=== PATIENT | female | born 1940 | race Caucasian/White ===

== ENCOUNTER 2019-09-28 11:02 | Emergency (ER) | payer MEDICARE ==
[2019-09-28] MEDS ORDERED: Sodium Chloride 0.9% 2.5 ML Syringe FLUSH PRN (11:12)
[2019-09-28] MEDS ORDERED: Sodium Chloride 0.9% 10 ML Syringe FLUSH PRN (11:12)
--- NOTE | 2019-09-28 11:12 | EDM.PDOC ---
ED HPI GENERAL MEDICAL PROBLEM - General Chief Complaint: Cardiovascular Problem Stated Complaint: PT NOT FEELING WELL DUE TO BP Time Seen by Provider: 09/28/19 11:12 Source of Information: Reports: Patient History Limitations: Reports: No Limitations - History of Present Illness INITIAL COMMENTS - FREE TEXT/NARRATIVE: HISTORY AND PHYSICAL: History of present illness: Patient is an 79-year-old female who presents to the emergency room with complaints of generally feeling unwell, shortness of breath, weak and near syncope. She has had these symptoms for approximately 1 week. She has been checking her blood pressure routinely at home and did call her primary care provider on Saturday (Hillary Solomon NP), who directed her to decrease her blood pressure medication (Chlorthalidon). Her blood pressure at that time was 110's/70's. She becomes short of breath with physical activity or exertion. She has generalized weakness and fatigue. She does have episodes where she f eels like she could "pass out" and her vision becomes blurry. She was concerned that today her blood pressure may be high and that is why she was feeling unwell. Patient denies any fever, chills, headache, chest pain, back pain or cough. Denies any abdominal pain, nausea, vomiting, diarrhea, constipation or dysuria. Has not noted any blood in urine or stool. Patient has been eating and drinking appropriately. Patient states her only medical history of hypertension and elevated cholesterol. No recent travel or exposure to anyone who is been ill. She denies any history of immunocompromise or steroid use. Denies any alcohol or drug abuse. Review of systems: As per history of present illness and below otherwise all systems reviewed and negative. Past medical history: As per history of present illness and as reviewed below otherwise noncontributory. Surgical history: As per history of present illness and as reviewed below otherwise noncontributory. Social history: See social history for further information Family history: As per history of present illness and as reviewed below otherwise noncontributory. Physical exam: General: Well developed and well-nourished 79-year-old female. Alert and oriented. Nontoxic-appearing and in no acute distress. HEENT: Atraumatic, normocephalic, pupils equal and reactive bilaterally, negative for conjunctival pallor or scleral icterus, mucous membranes moist, TMs normal bilaterally, throat clear, neck supple, nontender, trachea midline. No drooling or trismus noted. No meningeal signs. No hot potato voice noted. Lungs: Clear to auscultation, breath sounds equal bilaterally, chest nontender. Heart: S1S2, regular rate and rhythm without overt murmur Abdomen: Soft, nondistended, nontender. Negative for masses or hepatosplenome gustavo. Negative for costovertebral tenderness. Pelvis: Stable nontender. Skin: Intact, warm, dry. No lesions or rashes noted. Extremities: Atraumatic, moves all extremities per self without difficulty or deficits, negative for cords or calf pain. Neurovascular unremarkable. Neuro: Awake, alert, oriented. Cranial nerves II through XII unremarkable. Cerebellum unremarkable. Motor and sensory unremarkable throughout. Exam nonfocal. Notes: EKG at 1118 shows normal sinus rhythm with rate of 74. No previous EKG for comparison. Head CT shows no acute findings. Lab work is unremarkable. The hospitalist happened to be down here for another patient, I briefly discussed this case with her. She is agreeable that if the patient would like to stay, although not necessary, she would accept her for observation admission. I did discuss the diagnostics with the patient. We reviewed admission versus discharge to home. Patient states she would like to be discharged to home. I think this is acceptable. We discussed signs and symptoms that would prompt her to return to the emergency room. She does have an appointment with her primary care provider next week. I encouraged her to return to the emergency room if her symptoms return, worsen or new symptoms develop. Supportive care measures were reviewed and discussed. She voices understanding and is agreeable to plan of care. Denies any further questions or concerns at this time. Diagnostics: CBC, CMP, Troponin, EKG, CXR, UA, Head CT, Orthostatic Vital Signs Therapeutics: NS at 100ml/hr Prescription: None Impression: Near Syncope Dehydration Plan: 1. Your lab work, head CT, EKG and chest x-ray are within normal limits. It did show that you were slightly dehydrated which could likely be due to your Chlorthalidon, as this is a diuretic that can cause dehydration. Consider talking to your primary care provider about stopping this medication altogether. 2. Increase your fluids at home. 3. Keep your follow-up appointment that you have set up with Erik. If your symptoms should return, worsen or new symptoms develop return to the emergency room as needed and as we discussed. Definitive disposition and diagnosis as appropriate pending reevaluation and review of above. - Related Data Allergies Allergy/AdvReac Type Severity Reaction Status Date / Time Sulfa (Sulfonamide Allergy Rash Verified 09/28/19 11:12 Antibiotics) Home Meds: Home Meds Chlorthalidone 12 mg PO DAILY 09/28/19 [History] Rosuvastatin Calcium 10 mg PO BEDTIME 09/28/19 [History] lisinopriL [Lisinopril] 10 mg PO DAILY 09/28/19 [History] ED ROS GENERAL - Review of Systems Review Of Systems: Comprehensive ROS is negative, except as noted in HPI. ED EXAM, GENERAL - Physical Exam Exam: See Below (See dictation) Course - Vital Signs Last Recorded V/S: Last Vital Signs Temp 96.0 F L 09/28/19 11:14 Pulse 72 09/28/19 11:14 Resp 16 09/28/19 11:14 BP 126/87 09/28/19 11:14 Pulse Ox 96 09/28/19 11:14 Orthostatic Blood Pressure [ 160/64 Standing] Orthostatic Blood Pressure [ 153/55 Sitting] Orthostatic Blood Pressure [ 154/54 Supine] - Orders/Labs/Meds Orders: Active Orders 24 hr Category Date Time Status EKG Documentation Completion [RC] STAT Care 09/28/19 11:12 Active Orthostatic Vital Signs [RC] ASDIRECTED Care 09/28/19 11:28 Active Saline Lock Insert [OM.PC] Stat Oth 09/28/19 11:12 Ordered Labs: Laboratory Tests 09/28/19 09/28/19 09/28/19 Range/Units 11:38 11:38 12:51 WBC 4.92 (4.0-11.0) K/uL RBC 4.13 L (4.30-5.90) M/uL Hgb 12.8 (12.0-16.0) g/dL Hct 37.3 (36.0-46.0) % MCV 90.3 (80.0-98.0) fL MCH 31.0 (27.0-32.0) pg MCHC 34.3 (31.0-37.0) g/dL RDW Std Deviation 41.4 (28.0-62.0) fl RDW Coeff of Nida 13 (11.0-15.0) % Plt Count 170 (150-400) K/uL MPV 9.80 (7.40-12.00) fL Neut % (Auto) 57.8 (48.0-80.0) % Lymph % (Auto) 33.3 (16.0-40.0) % [place] % (Auto) 6.3 (0.0-15.0) % Eos % (Auto) 2.2 (0.0-7.0) % Baso % (Auto) 0.4 (0.0-1.5) % Neut # (Auto) 2.8 (1.4-5.7) K/uL Lymph # (Auto) 1.6 (0.6-2.4) K/uL [place] # (Auto) 0.3 (0.0-0.8) K/uL Eos # (Auto) 0.1 (0.0-0.7) K/uL Baso # (Auto) 0.0 (0.0-0.1) K/uL Nucleated RBC % 0.0 /100WBC Nucleated RBCs # 0 K/uL Sodium 141 (136-145) mmol/L Potassium 3.7 (3.5-5.1) mmol/L Chloride 101 (98-107) mmol/L Carbon Dioxide 29.6 (21.0-32.0) mmol/L BUN 15 (7.0-18.0) mg/dL Creatinine 1.1 H (0.6-1.0) mg/dL Est Cr Clr Drug Dosing 36.70 mL/min Estimated GFR (MDRD) 47.8 ml/min Glucose 102 (74-106) mg/dL Calcium 8.7 (8.5-10.1) mg/dL Total Bilirubin 0.6 (0.2-1.0) mg/dL AST 12 L (15-37) IU/L ALT 14 (14-63) IU/L Alkaline Phosphatase 74 (46-116) U/L Troponin I < 0.050 (0.000-0.056) ng/mL Total Protein 6.1 L (6.4-8.2) g/dL Albumin 3.5 (3.4-5.0) g/dL Globulin 2.6 (2.6-4.0) g/dL Albumin/Globulin Ratio 1.3 (0.9-1.6) Urine Color YELLOW Urine Appearance CLEAR Urine pH 7.0 (5.0-8.0) Ur Specific [place] 1.010 (1.001-1.035) Urine Protein NEGATIVE (NEGATIVE) mg/dL Urine Glucose (UA) NEGATIVE (NEGATIVE) mg/dL Urine Ketones NEGATIVE (NEGATIVE) mg/dL Urine Occult Blood NEGATIVE (NEGATIVE) Urine Nitrite NEGATIVE (NEGATIVE) Urine Bilirubin NEGATIVE (NEGATIVE) Urine Urobilinogen 0.2 (<2.0) EU/dL Ur Leukocyte Esterase NEGATIVE (NEGATIVE) Meds: Medications Discontinued Medications Generic Name Dose Route Start Last Admin Trade Name Freq PRN Reason Stop Dose Admin Sodium Chloride 1,000 mls @ 100 mls/hr 09/28/19 11:28 09/28/19 11:42 Normal Saline IV 09/28/19 21:27 100 mls/hr STAT ONE Administration Sodium Chloride 10 ml 09/28/19 11:12 09/28/19 11:44 Saline Flush FLUSH 10 ml ASDIRECTED PRN Administration Keep Vein Open Sodium Chloride 2.5 ml 09/28/19 11:12 09/28/19 11:43 Saline Flush FLUSH 2.5 ml ASDIRECTED PRN Administration Keep Vein Open Departure - Departure Time of Disposition: 13:07 Disposition: Home, Self-Care 01 Clinical Impression: Near syncope, Dehydration Instructions: Near-Syncope, [id number] Referrals: Sahra Solomon ENVIRONMENTAL RESOURCE SPECIALIST [Primary Care Provider] - Forms: ED Department Discharge Additional Instructions: The following information is given to patients seen in the emergency department who are being discharged to home. This information is to outline your options for follow-up care. We provide all patients seen in our emergency department with a follow-up referral. The need for follow-up, as well as the timing and circumstances, are variable depending upon the specifics of your emergency department visit. If you don't have a primary care physician on staff, we will provide you with a referral. We always advise you to contact your personal physician following an emergency department visit to inform them of the circumstance of the visit and for follow-up with them and/or the need for any referrals to a consulting specialist. The emergency department will also refer you to a specialist when appropriate. This referral assures that you have the opportunity for follow-up care with a specialist. All of these measure are taken in an effort to provide you with optimal care, which includes your follow-up. Under all circumstances we always encourage you to contact your private physician who remains a resource for coordinating your care. When calling for follow-up care, please make the office aware that this follow-up is from your recent emergency room visit. If for any reason you are refused follow-up, please contact the [facility] Emergency Department at and asked to speak to the emergency department charge nurse. [facility] [address] [place] [id number] [facility] [address] [place] [id number] 1. Your lab work, head CT, EKG and chest x-ray are within normal limits. It did show that you were slightly dehydrated which could likely be due to your Chlorthalidon, as this is a diuretic that can cause dehydration. Consider talking to your primary care provider about stopping this medication altogether. 2. Increase your fluids at home. 3. Keep your follow-up appointment that you have set up with Erik. If your symptoms should return, worsen or new symptoms develop return to the emergency room as needed and as we discussed. Sepsis Event Note (ED) - Focused Exam Vital Signs: Vital Signs Temp Pulse Resp BP Pulse Ox 09/28/19 11:14 96.0 F L 72 16 126/87 96 - My Orders Last 24 Hours: My Active Orders 09/28/19 11:12 EKG Documentation Completion [RC] STAT Saline Lock Insert [OM.PC] Stat 09/28/19 11:28 Orthostatic Vital Signs [RC] ASDIRECTED - Assessment/Plan Last 24 Hours: My Active Orders 09/28/19 11:12 EKG Documentation Completion [RC] STAT Saline Lock Insert [OM.PC] Stat 09/28/19 11:28 Orthostatic Vital Signs [RC] ASDIRECTED
[2019-09-28 11:17] VITALS: BP 126/87; PULSE 72
[2019-09-28] MEDS ORDERED: Sodium Chloride 0.9% 1,000 ML IV ONE (11:28)
[2019-09-28 12:17] LABS: BLOOD UREA NITROGEN,BUN 15 mg/dL (7.0-18.0); CARBON DIOXIDE,CO2 29.6 mmol/L (21.0-32.0); CHLORIDE,CL 101 mmol/L (98-107); GLUCOSE RANDOM 102 mg/dL (74-106); POTASSIUM,K 3.7 mmol/L (3.5-5.1); SODIUM,NA 141 mmol/L (136-145)
--- NOTE | 2019-09-28 12:21 | CT ---
Head CT Technique: Multiple axial sections through the brain were obtained. Intravenous contrast was not utilized. Comparison: No prior intracranial imaging is available. Findings: Ventricles along with basal cisterns and sulci over the convexities are mildly prominent. Minimal diminished density is noted within the periventricular white matter compatible with minimal small vessel ischemic demyelination change. Minimal basal ganglia calcification is seen on the right side. 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 No intracranial hemorrhage is seen. No midline shift or mass-effect is seen. Bone window settings were reviewed. No acute calvarial finding is appreciated. Visualized mastoid sinuses and visualized paranasal sinuses are clear. Impression: 1. Mild senescent change. 2. Nothing acute is appreciated on noncontrast head CT exam. Diagnostic code #2 This report was dictated in MDT
--- NOTE | 2019-09-28 12:32 | CR ---
Chest: Portable view of the chest was obtained. Comparison: No prior chest imaging. Heart size and mediastinum are normal. Lungs are clear. Bony structures are grossly intact. Impression: 1. Nothing acute is appreciated on portable chest x-ray. Diagnostic code #1 This report was dictated in MDT
== END 2019-09-28 13:21 | disposition home or self-care (01) ==
LOC: MW.ED 11:02
DX: E86.0 Dehydration (principal); R55 Syncope and collapse; Z88.2 Allergy status to sulfonamides; Z79.899 Other long term (current) drug therapy
CPT/HCPCS: 36415; 70450; 71045; 80053; 81003; 84484; 85025; 93005; J7030; 96360; 96361; 99283; 99285-25

== ENCOUNTER 2019-12-25 11:20 | Emergency (ER) | payer MEDICARE, SELFPAY ==
[2019-12-25 11:30] VITALS: PULSE 78
[2019-12-25] MEDS ORDERED: Meclizine 25 MG Tab PO ONE (11:33)
[2019-12-25] MEDS ORDERED: Sodium Chloride 0.9% 1,000 ML IV ONE (11:33)
[2019-12-25] MEDS ORDERED: Sodium Chloride 0.9% 2.5 ML Syringe FLUSH PRN (11:33)
[2019-12-25] MEDS ORDERED: Sodium Chloride 0.9% 10 ML Syringe FLUSH PRN (11:33)
[2019-12-25] MEDS ORDERED: Losartan 50 MG Tab PO ONE (11:35)
--- NOTE | 2019-12-25 11:39 | EDM.PDOC ---
ED HPI GENERAL MEDICAL PROBLEM - General Chief Complaint: Neuro Symptoms/Deficits Stated Complaint: DIZZY Time Seen by Provider: 12/25/19 11:21 Source of Information: Reports: Patient, EMS History Limitations: Reports: No Limitations - History of Present Illness INITIAL COMMENTS - FREE TEXT/NARRATIVE: History of present illness: [Patient is 79-year-old female with a history of hypertension who presents to the ER with dizziness since this morning. She stated that the symptoms started shortly after she woke up. She denies any associated chest pain, shortness of breath, blurry vision, focal neurological deficit. She states that there is some nausea associated with it. She has had vertigo in the past, but states it was a long time ago and she does not deal with vertigo symptoms very often and she has no medications at home to treat vertigo symptoms. She states that she has had some changes in her blood pressure medications. She is a hard time remembering exactly what the changes are. She recalls being on hydrochlorothiazide, losartan, and lisinopril in the past. She states that she thinks she was taken off of lisinopril and told to go back on the losartan, the medication she was on before. She thinks maybe this is contributing to her symptoms. She was hypertensive at home when the EMS crew came to pick her up. She called her doctor this morning but has not heard back from her. Review of systems: As per history of present illness and below otherwise all systems reviewed and negative. Past medical history: As per history of present illness and as reviewed below otherwise noncontributory. Surgical history: As per history of present illness and as reviewed below otherwise noncontributory. Social history: No reported history of drug or alcohol abuse. Family history: As per history of present illness and as reviewed below otherwise noncontributory. Physical exam: General: Awake, alert, no acute distress, A&O X3. HEENT: Atraumatic, normocephalic, pupils reactive, negative for conjunctival pallor or scleral icterus, mucous membranes moist, throat clear, neck supple, nontender, trachea midline. Lungs: Clear to auscultation, breath sounds equal bilaterally, chest nontender. Heart: RRR, normal S1S2, no JVD. Abdomen: Soft, nondistended, nontender. Negative for masses or hepatosplenomegaly. Negative for costovertebral tenderness. Pelvis: Stable nontender. Genitourinary: Deferred. Rectal: Deferred. Extremities: Atraumatic, no edema, Neurovascular unremarkable. Neuro: Motor and sensory grossly intact throughout. Exam nonfocal. Diagnostics: [] Therapeutics: [] Impression: [] Plan: [] Definitive disposition and diagnosis as appropriate pending reevaluation and review of above. - Related Data Allergies Allergy/AdvReac Type Severity Reaction Status Date / Time Sulfa (Sulfonamide Allergy Rash Verified 12/25/19 11:26 Antibiotics) Home Meds: Home Meds Chlorthalidone 12 mg PO DAILY 09/28/19 [History] lisinopriL [Lisinopril] 10 mg PO DAILY 09/28/19 [History] Losartan Potassium 25 mg PO DAILY 12/25/19 [History] Meclizine [Antivert] 25 mg PO TID PRN #21 tab 12/25/19 [Rx] hydroCHLOROthiazide [Hydrochlorothiazide] 12.5 mg PO DAILY 12/25/19 [History] Past Medical History Cardiovascular History: Reports: High Cholesterol, Hypertension - Infectious Disease History Infectious Disease History: Reports: None - Past Surgical History Female Surgical History: Reports: Hysterectomy Social & Family History - Family History Family Medical History: Noncontributory - Tobacco Use Smoking Status *Q: Never Smoker - Caffeine Use Caffeine Use: Reports: None - Recreational Drug Use Recreational Drug Use: No ED ROS GENERAL - Review of Systems Review Of Systems: Comprehensive ROS is negative, except as noted in HPI. ED EXAM, NEURO - Physical Exam Exam: See Below (see h and p) EKG INTERPRETATION EKG Date: 12/25/19 Time: 11:46 Rhythm: NSR Rate (Beats/Min): 54 [place]: Normal P-Wave: Present QRS: Normal ST-T: Normal QT: Normal Course - Vital Signs Text/Narrative:: Patient reports feeling better after getting oral meclizine here. She did not require any treatment for her blood pressure, her systolic was between 150 and 160, I do not believe it merited acute treatment here in the ED. She was able to ambulate prior to discharge without significant difficulty, she required no help. She denies any chest pain or shortness of breath. She states that she is feeling much better now than she was this morning. I told her she should follow-up with her primary care doctor about her antihypertensive regimen at home. I also spoke with the patient's daughter about her symptoms. Told her I think the best thing for her would be go home and rest and relax and take the medications prescribed to help with her dizziness. To also continue taking her anti-hypertensive medications as previously instructed by PCP. I discussed return precautions with both the patient and the daughter that should she de velop new or worsening symptoms including intractable dizziness to the point where she cannot function at home or even walk across the room, chest pain, shortness of breath, focal neurological deficit, etc. Patient and daughter understand this plan and is agreeable with it. I do not believe her symptoms correlate with a central cause of vertigo. I told her the plan will be to get an MRI of her brain if rest and relaxation and medication do not adequately control her dizziness at home over the next couple of days. She also reported history of previous ear infections, her tympanic membranes were clear however. Otherwise she is well-appearing, nontoxic, stable at discharge. Last Recorded V/S: Last Vital Signs Temp 36.3 C 12/25/19 11:28 Pulse 78 12/25/19 11:28 Resp 17 12/25/19 11:28 BP 158/68 H 12/25/19 12:04 Pulse Ox 98 12/25/19 11:28 - Orders/Labs/Meds Orders: Active Orders 24 hr Category Date Time Status Ambulate [RC] ASDIRECTED Care 12/25/19 12:54 Active EKG Documentation Completion [RC] STAT Care 12/25/19 11:35 Active Sodium Chloride 0.9% [Saline Flush] Med 12/25/19 11:33 Active 10 ml FLUSH ASDIRECTED PRN Sodium Chloride 0.9% [Saline Flush] Med 12/25/19 11:33 Active 2.5 ml FLUSH ASDIRECTED PRN Saline Lock Insert [OM.PC] Stat Oth 12/25/19 11:33 Ordered Medication Orders Sodium Chloride (Saline Flush) 10 ml FLUSH ASDIRECTED PRN PRN Reason: Keep Vein Open Last Admin: 12/25/19 12:05 Dose: 10 ml Documented by: EUNICE Sodium Chloride (Saline Flush) 2.5 ml FLUSH ASDIRECTED PRN PRN Reason: Keep Vein Open Last Admin: 12/25/19 12:05 Dose: 2.5 ml Documented by: EUNICE Labs: Laboratory Tests 12/25/19 12/25/19 Range/Units 11:32 11:32 WBC 4.77 (4.0-11.0) K/uL RBC 4.28 L (4.30-5.90) M/uL Hgb 13.1 (12.0-16.0) g/dL Hct 38.6 (36.0-46.0) % MCV 90.2 (80.0-98.0) fL MCH 30.6 (27.0-32.0) pg MCHC 33.9 (31.0-37.0) g/dL RDW Std Deviation 41.9 (28.0-62.0) fl RDW Coeff of Nida 13 (11.0-15.0) % Plt Count 160 (150-400) K/uL MPV 10.10 (7.40-12.00) fL Neut % (Auto) 60.4 (48.0-80.0) % Lymph % (Auto) 30.8 (16.0-40.0) % [place] % (Auto) 5.7 (0.0-15.0) % Eos % (Auto) 2.9 (0.0-7.0) % Baso % (Auto) 0.2 (0.0-1.5) % Neut # (Auto) 2.9 (1.4-5.7) K/uL Lymph # (Auto) 1.5 (0.6-2.4) K/uL [place] # (Auto) 0.3 (0.0-0.8) K/uL Eos # (Auto) 0.1 (0.0-0.7) K/uL Baso # (Auto) 0.0 (0.0-0.1) K/uL Nucleated RBC % 0.0 /100WBC Nucleated RBCs # 0 K/uL Sodium 141 (136-145) mmol/L Potassium 3.5 (3.5-5.1) mmol/L Chloride 105 (98-107) mmol/L Carbon Dioxide 31.0 (21.0-32.0) mmol/L BUN 12 (7.0-18.0) mg/dL Creatinine 1.1 H (0.6-1.0) mg/dL Est Cr Clr Drug Dosing 36.70 mL/min Estimated GFR (MDRD) 47.8 ml/min Glucose 109 H (74-106) mg/dL Calcium 8.8 (8.5-10.1) mg/dL Total Bilirubin 1.1 H (0.2-1.0) mg/dL AST 17 (15-37) IU/L ALT 21 (14-63) IU/L Alkaline Phosphatase 70 (46-116) U/L Troponin I < 0.050 (0.000-0.056) ng/mL Total Protein 6.7 (6.4-8.2) g/dL Albumin 3.6 (3.4-5.0) g/dL Globulin 3.1 (2.6-4.0) g/dL Albumin/Globulin Ratio 1.2 (0.9-1.6) Meds: Medications Generic Name Dose Route Start Last Admin Trade Name Freq PRN Reason Stop Dose Admin Sodium Chloride 10 ml 12/25/19 11:33 12/25/19 12:05 Saline Flush FLUSH 10 ml ASDIRECTED PRN Administration Keep Vein Open Sodium Chloride 2.5 ml 12/25/19 11:33 12/25/19 12:05 Saline Flush FLUSH 2.5 ml ASDIRECTED PRN Administration Keep Vein Open Discontinued Medications Generic Name Dose Route Start Last Admin Trade Name Freq PRN Reason Stop Dose Admin Sodium Chloride 1,000 mls @ 999 mls/hr 12/25/19 11:33 12/25/19 12:02 Normal Saline IV 12/25/19 12:33 999 mls/hr .Bolus ONE Administration Losartan Potassium 50 mg 12/25/19 11:35 12/25/19 12:04 Cozaar PO 12/25/19 11:36 Not Given ONETIME ONE Meclizine HCl 50 mg 12/25/19 11:33 12/25/19 12:02 Antivert PO 12/25/19 11:34 50 mg ONETIME ONE Administration Departure - Departure Time of Disposition: 13:32 Disposition: Home, Self-Care 01 Condition: Good Clinical Impression: Dizziness - Discharge Information Prescriptions: Meclizine [Antivert] 25 mg PO TID PRN #21 tab PRN Reason: Dizziness Instructions: Dizziness, [id number] Referrals: Sahra Solomon NP [Primary Care Provider] - Forms: ED Department Discharge Additional Instructions: Follow-up with primary care doctor. Take all medications as prescribed. Return to the ER with any new or worsening symptoms including chest pain, shortness of breath, severe worsening dizziness, focal neurological deficit, etc. The following information is given to patients seen in the emergency department who are being discharged to home. This information is to outline your options for follow-up care. We provide all patients seen in our emergency department with a follow-up referral. The need for follow-up, as well as the timing and circumstances, are variable depending upon the specifics of your emergency department visit. If you don't have a primary care physician on staff, we will provide you with a referral. We always advise you to contact your personal physician following an emergency department visit to inform them of the circumstance of the visit and for follow-up with them and/or the need for any referrals to a consulting specialist. The emergency department will also refer you to a specialist when appropriate. This referral assures that you have the opportunity for follow-up care with a specialist. All of these measure are taken in an effort to provide you with optimal care, which includes your follow-up. Under all circumstances we always encourage you to contact your private physician who remains a resource for coordinating your care. When calling for follow-up care, please make the office aware that this follow-up is from your recent emergency room visit. If for any reason you are refused follow-up, please contact the [facility] Emergency Department at and asked to speak to the emergency department charge nurse. Sepsis Event Note (ED) - Evaluation Sepsis Screening Result: No Definite Risk - Focused Exam Vital Signs: Vital Signs Temp Pulse Resp BP BP Pulse Ox 12/25/19 12:04 158/68 H 12/25/19 11:28 36.3 C 78 17 167/72 H 98 - My Orders Last 24 Hours: My Active Orders 12/25/19 11:33 Sodium Chloride 0.9% [Saline Flush] 10 ml FLUSH ASDIRECTED PRN Sodium Chloride 0.9% [Saline Flush] 2.5 ml FLUSH ASDIRECTED PRN Saline Lock Insert [OM.PC] Stat 12/25/19 11:35 EKG Documentation Completion [RC] STAT 12/25/19 12:54 Ambulate [RC] ASDIRECTED - Assessment/Plan Last 24 Hours: My Active Orders 12/25/19 11:33 Sodium Chloride 0.9% [Saline Flush] 10 ml FLUSH ASDIRECTED PRN Sodium Chloride 0.9% [Saline Flush] 2.5 ml FLUSH ASDIRECTED PRN Saline Lock Insert [OM.PC] Stat 12/25/19 11:35 EKG Documentation Completion [RC] STAT 12/25/19 12:54 Ambulate [RC] ASDIRECTED
--- NOTE | 2019-12-25 12:03 | CR ---
Chest: Portable view of the chest was obtained. Comparison: Prior chest x-ray of 09/28/19. Heart size is normal. Tortuous thoracic aorta is seen. Lungs are clear with no acute parenchymal change. Scattered degenerative change is noted within the spine. Impression: 1. Nothing acute is seen on portable chest x-ray. Diagnostic code #1 This report was dictated in MDT
[2019-12-25 12:04] VITALS: BP 158/68
[2019-12-25 12:05] LABS: BLOOD UREA NITROGEN,BUN 12 mg/dL (7.0-18.0); CHLORIDE,CL 105 mmol/L (98-107); GLUCOSE RANDOM 109 mg/dL (74-106); POTASSIUM,K 3.5 mmol/L (3.5-5.1); SODIUM,NA 141 mmol/L (136-145)
== END 2019-12-25 13:37 | disposition home or self-care (01) ==
LOC: MW.ED 11:20
DX: R42 Dizziness and giddiness (principal); I10 Essential (primary) hypertension; Z88.2 Allergy status to sulfonamides; Z79.899 Other long term (current) drug therapy
CPT/HCPCS: 36415; 71045; 80053; 84484; 85025; 93005; 96360; 99284; A9270; J7030; 99283